=== PATIENT | female | born 1980 | race African-American/Black ===

== ENCOUNTER 2016-09-20 21:26 | Emergency (ER) | payer BC ==
--- NOTE | ~2016-09-20 | CR170 ---
[facility] A Service of [facility] & [facility] RADIOLOGY TEXT RESULTS PATIENT: RHONDA CHASE LOCATION: CFTX : 84 UNIT #: [id number] AGE: [address]: Sourav Mantilla SEX: F ORDER DR: [id number] [facility] [address] [place], [place] [address] [id number] E MR#: [id number] Acc #: [id number] NAME: RHONDA CHASE : 1980 SEX: F STUDY DATE/TIME: 09/20/2016 22:11 UNIT: [facility] ROOM: STUDY DESCRIPTION: CR Knee 2 Views Rt Attending Physician: Sourav Mantilla P.A.-C. Ordering Physician: Sourav Mantilla P.A.-C. Primary Care Physician: Primary Care Physician No MEDICAL IMAGING REPORT This report is preliminary unless electronic signature is present EXAM Right knee INDICATIONS Right knee pain and swelling for 1 day. FINDINGS Two views of the right knee without comparison. No fracture or dislocation. There is a small knee effusion. No foreign body. IMPRESSION Small knee effusion. Dictated by... Yrn Keith M.D. THIS IS AN ELECTRONICALLY VERIFIED REPORT Yrn Keith M.D. at 09/21/2016 4:17 AM OMAR/genie TD: 09/21/2016 02:37 JOB #: [id number] MEDICAL IMAGING REPORT Page 1 of 1 COPY
[~2016-09-20 21:26] MED LIST: LORTAB 5/500 TA1 TA1 PO; PENICILLIN PO
[2016-09-20 22:23] LABS: URINE SOURCE CLEAN CATCH
[2016-09-20 22:32] LABS: BASOPHIL# 0.2 X10e3 (0-0.3); BASOPHIL% 2.1 % (0-2.5); EOSINOPHIL# 0.4 X10e3 (0-0.7); EOSINOPHIL% 4.8 % (0.0-7.0); HEMATOCRIT 35.9 % (35.0-45.0); HEMOGLOBIN 11.7 gm/dL (12.0-16.0); LYMPHOCYTE% 43.9 % (17.0-45.0); MEAN CELL VOLUME 79.1 FL (83-96); MEAN CORPUSCULAR HEMOGLOBIN 25.8 PG (28-34); MEAN CORPUSCULAR HGB CONC 32.6 g/dL (30-36); MEAN PLATELET VOLUME 7.8 FL (6.5-11.5); MONOCYTE# 0.4 X10e3 (0-1.0); MONOCYTE% 4.8 % (3.0-12.0); NEUTROPHIL% 44.4 % (40-75); PLATELET COUNT 294 X10e3 (140-420); RED BLOOD COUNT 4.54 X10e (3.90-5.30); RED CELL DISTRIBUTION WIDTH 17.3 % (11.0-15.5); WHITE BLOOD COUNT 9.1 X10e3 (4.0-10.5)
[2016-09-20 22:32] LABS: URINE APPEARANCE CLEAR; URINE BILIRUBIN NEG (NEG); URINE BLOOD NEG (NEG); URINE COLOR YELLOW; URINE GLUCOSE NEG (NEG); URINE KETONE NEG (NEG); URINE LEUKOCYTE ESTERASE 1+ (NEG); URINE NITRATE NEG (NEG); URINE PH 5.5 (5-8); URINE PROTEIN NEG (NEG); URINE UROBILINOGEN 0.2 MG/DL (NEG)
[2016-09-20 22:33] LABS: DIFF IND NO
[2016-09-20 22:34] LABS: CULTURE INDICATED? YES; URBCS1 AUWI 0-2 /[HPF] (0-2); URINE BACTERIA AUWI NEG (NEGATIVE); URINE SQUAMOUS EPITHELIAL CELL OCC /[HPF]
[2016-09-20 22:56] LABS: ALBUMIN SERUM 4.1 g/dL (3.5-5.0); BILIRUBIN, DIRECT 0.1 mg/dL (0.0-0.2); BILIRUBIN,INDIRECT 0.2 mg/dL (0.0-0.9); BILIRUBIN,TOTAL 0.3 mg/dL (0.2-2.0); BUN/CREATININE RATIO 8.75; CALCIUM SERUM 8.8 mg/dL (8.4-10.2); CREATININE SERUM 0.8 mg/dL (0.6-1.4); GLOM FILT RATE Estimated 111.6 mL/min (>60); POTASSIUM 3.6 mmol/L (3.5-5.1); PROTEIN TOTAL SERUM 6.7 g/dL (6.0-8.3); URIC ACID 4.8 mg/dL (2.6-7.2)
== END 2016-09-20 23:44 | disposition home or self-care (01) ==
LOC: CFTX 21:26 → CED 21:26 → CFTX 22:13
PROVIDERS: Physician Assistant
DX: I87.2 Venous insufficiency (chronic) (peripheral) (principal); M25.461 Effusion, right knee; F32.9 Major depressive disorder, single episode, unspecified; Z98.51 Tubal ligation status; F17.210 Nicotine dependence, cigarettes, uncomplicated
CPT/HCPCS: 36415; 73560; 80048; 80076; 81003; 83880; 84550; 84703; 85025; 85652; 87086; 99283